=== PATIENT | female | born 1970 | race Caucasian/White ===

== ENCOUNTER 2019-08-11 17:44 | Emergency (ER) | payer SELFPAY ==
[2019-08-11 18:07] VITALS: BP 167/98; PULSE 108; TEMP 98; BMI 35.5
--- NOTE | 2019-08-11 19:23 | PDOC ---
History of Present Illness - General Stated Complaint: FALL/LEFT FOOT/INJURY Time Seen by Provider: 08/11/19 18:31 History Source: Patient Exam Limitations: No Limitations Past History - Travel Traveled outside of the country in the last 30 days: No Close contact w/someone who was outside of country & ill: No - Past Medical History Allergies/Adverse Reactions: Allergies Allergy/AdvReac Type Severity Reaction Status Date / Time No Known Allergies Allergy Verified 08/11/19 17:57 Home Medications: Ambulatory Orders Ibuprofen 600 mg PO Q6H #30 tablet 08/11/19 - Suicide/Smoking/Psychosocial Hx Smoking History: Never smoked Hx Alcohol Use: No Drug/Substance Use Hx: No Review of Systems - Review of Systems Able to Perform ROS?: Yes Comments:: 08/11/19 19:07 CONSTITUTIONAL: Absent: fever, chills, diaphoresis, generalized weakness, malaise, loss of appetite HEENT: Absent: rhinorrhea, nasal congestion, throat pain, throat swelling, difficulty swallowing, mouth swelling, ear pain, eye pain, visual Changes CARDIOVASCULAR: Absent: chest pain, loss of consciousness, palpitations, irregular heart rate, peripheral edema RESPIRATORY: Absent: cough, shortness of breath, dyspnea with exertion, orthopnea, wheezing, stridor, hemoptysis GASTROINTESTINAL: Absent: abdominal pain, abdominal distension, nausea, vomiting, diarrhea, constipation, melena, hematochezia GENITOURINARY: Absent: dysuria, frequency, urgency, hesitancy, hematuria, flank pain, genital pain MUSCULOSKELETAL: Present: L ankle pain Absent: myalgia, arthralgia, joint swelling SKIN: Absent: rash, itching, pallor HEMATOLOGIC/IMMUNOLOGIC: Absent: easy bleeding, easy bruising, lymphadenopathy, frequent infections ENDOCRINE: Absent: unexplained weight gain, unexplained weight loss, heat intolerance, cold intolerance NEUROLOGIC: Absent: headache, focal weakness or paresthesias, dizziness, unsteady gait, seizure, mental status changes, bladder or bowel incontinence PSYCHIATRIC: Absent: anxiety, depression, suicidal or homicidal ideation, hallucinations. Is the patient limited Frisian proficient: No *Physical Exam - Vital Signs Last Vital Signs Temp Pulse Resp BP Pulse Ox 98 F 108 H 18 167/98 99 08/11/19 17:57 08/11/19 17:57 08/11/19 17:57 08/11/19 17:57 08/11/19 17:57 - Physical Exam Comments: 08/11/19 19:23 GENERAL: The patient is awake, alert, and fully oriented, in no acute distress. HEAD: Normal with no signs of trauma. EYES: Pupils equal, round and reactive to light, extraocular movements intact, sclera anicteric, conjunctiva clear. EXTREMITIES: TTP of the lateral malleolus. Unable to range the L ankle d/t pain and swelling. Distal pulses present. Normal range of motion at all other joints. NEUROLOGICAL: Normal speech, normal gait. PSYCH: Normal mood, normal affect. SKIN: Warm, Dry, normal turgor, no rashes or lesions noted. Procedures - Splinting Splint Location: Left: Ankle Pre-Proc Neuro Vasc Exam: normal Hand-Made Type: orthoglass Splint Type: Yes: Prudence Elais Post-Proc Neuro Vasc Exam: unchanged from pre-exam Jaiden Bandage: 4", 6" Medical Decision Making - Medical Decision Making 08/11/19 19:59 The patient is a 49 y/o F who presents to the ER with L ankle pain. Pt states she fell down 3 steps while carrying laundry one week ago. She was seen at an Urgent care and diagnosed with a distal fibula fracture and told to come the ER for further evaluation. States there is pain to the ankle. Denies numbness weakness and tingling to the affected extremity A/P: Distal fibula fx On exam Swelling and bruising noted to the L Lateral malleolus X-ray re-obtained. Non-displaced fibula fx Pt placed in a stirrup splint; made non-weight bearing Stable for outpatient DC home; return precautions give I discussed the physical exam findings, ancillary test results and final diagnoses with the patient. I answered all of the patient's questions. The patient was satisfied with the care received and felt comfortable with the discharge plan and treatment plan. The Patient agrees to follow up with the primary care physician/specialist within 24-72 hours. Return precautions were given. *DC/Admit/Observation/Transfer Diagnosis at time of Disposition: Fibula fracture Qualifiers: Encounter type: initial encounter Fibula location: distal Fracture type: closed Fracture morphology: unspecified fracture morphology Laterality: left Qualified Code(s): S82.832A - Other fracture of upper and lower end of left fibula, initial encounter for closed fracture - Discharge Dispostion Disposition: HOME Condition at time of disposition: Stable Decision to Admit order: No - Prescriptions Prescriptions: Ibuprofen 600 mg PO Q6H #30 tablet - Referrals Referrals: Jamie Martinez DO [Staff Physician] - - Patient Instructions Printed Discharge Instructions: DI for Ankle Fracture Additional Instructions: You were evaluated for your ankle pain today. You have a fractured fibula. Also have avulsion fractures in your feet. You were splinted today. Please wear the splint [facility]. Do not get it wet. You may take Motrin 600 mg every 6 hours as needed for pain. Keep the leg elevated while resting. Return to the ER for worsening pain, numbness and tingling, or if you have any changes in her symptoms. - Post Discharge Activity
== END 2019-08-11 20:03 | disposition home or self-care (01) ==
LOC: JERFT 17:44
PROC: 2W3RX1Z Immobilization of Left Lower Leg using Splint (ICD-10-PCS; principal; 2019-08-11)
DX: S82.832D Other fracture of upper and lower end of left fibula, subsequent encounter for closed fracture with routine healing (principal); W10.8XXD Fall (on) (from) other stairs and steps, subsequent encounter
CPT/HCPCS: 73610-TC-LT-FY; 73630-TC-LT; 99283-25

== ENCOUNTER 2022-12-03 08:14 | Emergency (ER) | payer OTHER ==
[2022-12-03 08:39] VITALS: BP 173/99; PULSE 97; RESP 20; TEMP 98.2; BMI 35.2
[2022-12-03] MEDS ORDERED: MECLIZINE HCL 25 MG TABLET (FP) PO ONE (08:45)
[2022-12-03] MEDS ORDERED: MECLIZINE HCL 25 MG TABLET (FP) ONE (08:47)
[2022-12-03 09:27] LABS: HEMATOCRIT 43.8 % (32.4-45.2); HEMOGLOBIN 14.9 G/dL (10.7-15.3); MCHC 33.9 g/dl (32.0-36.0); MEAN CELL VOLUME 88.4 fl (80-96); MEAN PLT VOLUME 8.5 fl (7.5-11.1); PLATELET COUNT 307.9 10^3/uL (134-434); RBC 4.95 10^6/uL (3.60-5.2); RDW 13.6 % (11.6-15.6); WHITE BLOOD COUNT 10.5 10^3/uL (4.0-10.8)
[2022-12-03 09:29] LABS: PLATELET ESTIMATE ADEQUATE
[2022-12-03 09:51] LABS: ALBUMIN 4.2 g/dl (3.4-5.0); BILIRUBIN,TOTAL 0.4 mg/dl (0.2-1); CALCIUM 9.6 mg/dl (8.5-10); CREATININE 0.7 mg/dl (0.55-1.3)
== END 2022-12-03 11:56 | disposition home or self-care (01) ==
LOC: FER 08:14
DX: R42 Dizziness and giddiness (principal); I10 Essential (primary) hypertension
CPT/HCPCS: 36415; 70450-TC; 80053; 85027; 93005; 99285-25